=== PATIENT | female | born 1945 | race Caucasian/White ===

== ENCOUNTER → 2023-02-09 | Outpatient (CLI) | payer MEDICARE, BC ==
--- NOTE | 2023-02-04 09:14 | NUR ---
THE NUMBER HAS BEEN DISCONNECTED AND UNABLE TO REACH PT.
[~2023-02-09] VITALS: Ht 154.9 cm; Wt 86.9 kg
[~2023-02-09] MED LIST: ALBUTEROL SULFAT3 M3 IH; CALCIUM 600MG+D1 TAB PO; CARDIZEM120 MG PO; CELEBREX 200MG200 MG PO; COUMADIN4 MG PO; CRESTOR 10MG10 MG PO; LASIX 40MG TABL40 MG PO; SYNTHROID0.088 MG/T PO; TOPROL XL 50MG50 MG PO; ZYRTEC 10MG10 MG PO
[2023-02-09 06:20] VITALS: BP 136/82; PULSE 87; TEMP 97.4
--- NOTE | 2023-02-09 08:09 | NUR ---
PROCEDURE WAS CANCELLED BY DR CARSON. THE MASS WAS A CYST AND THEY WILL FOLLOW UP IN 6 MONTHS
== END ==
LOC: COL.RAD 05:33
DX: R93.422 Abnormal radiologic findings on diagnostic imaging of left kidney (principal); Q62.39 Other obstructive defects of renal pelvis and ureter
CPT/HCPCS: Q9967

== ENCOUNTER → 2023-12-28 | Outpatient (CLI) | payer MEDICARE, BC | LOC: COL.RAD 15:45 | DX: N94.89 Other specified conditions associated with female genital organs and menstrual cycle (principal); Z85.42 Personal history of malignant neoplasm of other parts of uterus ==